=== PATIENT | male | born 1995 | race Caucasian/White ===

== ENCOUNTER 2020-03-24 22:00 | Emergency (ER) | payer SELFPAY ==
--- OUTSIDE RECORDS SUMMARY | 2020-03-24 22:03 | XMS REPORT | Continuity of Care Document ---
:1995 Author Organization [facility] t Address [address] [place] [address] [address] [place] [address] Care Team Providers Name Role Phone Unavailable Unavailable Unavailable Problems This patient has no known problems. Allergies, Adverse Reactions, Alerts This patient has no known allergies or adverse reactions. Medications This patient has no known medications. Procedures This patient has no known procedures. Results This patient has no known results.
[2020-03-24] MEDS ORDERED: dexAMETHasone 10 MG/ML VIAL ONE (22:42)
[2020-03-24] MEDS ORDERED: HYDROCODONE/CHLORPHEN 5 ML/OSYR ONE (22:42)
[2020-03-24] MEDS ORDERED: KETOROLAC 30 MG/ML INJ ONE (22:43)
--- NOTE | 2020-03-25 00:52 | ER ---
Nurse's Notes [facility] Name: Casa Puga Age: 24 yrs Sex: Male : 1995 Arrival Date: 03/24/2020 Time: 22:03 Bed 20 Private MD: Diagnosis: Acute sinusitis;Cough Presentation: 03/24 22:09 Chief complaint: Patient states: Productive cough x 2 weeks. Sore throat and ca1 congestion, headache, sinus pressure x 1 week. Denies fever. Coronavirus screen: Client denies travel out of the [place] in the last 14 days. congestion, cough unrelated to allergies, headache, sore throat, Client presents with at least one sign or symptom that may indicate coronavirus-19. Standard/surgical mask placed on the client. Provider contacted for isolation considerations. Ebola Screen: Patient negative for fever greater than or equal to 101.5 degrees Fahrenheit, and additional compatible Ebola Virus Disease symptoms Patient denies exposure to infectious person. Patient denies travel to an Ebola-affected area in the 21 days before illness onset. No symptoms or risks identified at this time. Initial Sepsis Screen: Does the patient meet any 2 criteria? No. Patient's initial sepsis screen is negative. Does the patient have a suspected source of infection? No. Patient's initial sepsis screen is negative. Risk Assessment: Do you want to hurt yourself or someone else? Patient reports no desire to harm self or others. 22:09 Method Of Arrival: Ambulatory ca1 22:09 Acuity: NARGIS 3 ca1 22:09 Onset of symptoms was March 24, 2020. ca1 Historical: - Allergies: 22:12 No Known Allergies; ca1 - Home Meds: 22:12 None [Active]; ca1 - PMHx: 22:12 Seizures; ca1 - PSHx: 22:12 None; ca1 - Immunization history:: Adult Immunizations up to date, Flu vaccine is not up to date. - Social history:: Smoking status: Patient reports the use of cigarette tobacco products, smokes two packs cigarettes per day. Screenin:52 Abuse screen: Denies threats or abuse. Nutritional screening: No deficits noted. ll2 Tuberculosis screening: No symptoms or risk factors identified. Fall Risk None identified. Assessment: 22:30 General: Appears in no apparent distress. Behavior is calm, cooperative, appropriate ll2 for age. Pain: Denies pain. Pain: Complains of pain in throat. Neuro: Level of Consciousness is. Neuro: Oriented to person, place, time, situation. Cardiovascular: Patient's skin is warm and dry. Respiratory: Airway is patent Respiratory effort is even, unlabored, Respiratory pattern is regular, symmetrical. Respiratory: Breath sounds are clear. GI: No signs and/or symptoms were reported involving the gastrointestinal system. : No signs and/or symptoms were reported regarding the genitourinary system. EENT: Throat is reddened. Derm: Skin is intact, is healthy with good turgor, Skin is dry, Skin is pink, warm \T\ dry. Musculoskeletal: Circulation, motion, and sensation intact. Range of motion: intact in all extremities. 23:30 Reassessment: Patient and/or family updated on plan of care and expected duration. Pain ll2 level reassessed. Patient is alert, oriented x 3, equal unlabored respirations, skin warm/dry/pink. Vital Signs: 22:09 BP 143 / 89; Pulse 101; Resp 17 S; Temp 97.9(TE); Pulse Ox 98% on R/A; Weight 90.72 kg ca1 (R); Height 5 ft. 8 in. (172.72 cm) (R); Pain 2/10; 22:52 BP 140 / 87; Pulse 91; Resp 18; Temp 98; Pulse Ox 97% on R/A; ll2 12 00:00 BP 132 / 75; Pulse 72; Resp 18; Temp 98; Pulse Ox 95% on R/A; ll2 01:03 BP 127 / 89; Pulse 75; Resp 16; Temp 98.3; Pulse Ox 96% on R/A; ll2 03/24 22:09 Body Mass Index 30.41 (90.72 kg, 172.72 cm) ca1 ED Course: 03/24 22:03 Patient arrived in ED. bp1 22:05 Jason Kidd NP is PHCP. pm1 22:05 Allen Ordonez MD is Attending Physician. pm1 22:11 Triage completed. ca1 22:12 Arm band placed on right wrist. ca1 22:14 Yessy Leonard RN is Primary Nurse. ll2 22:15 Patient has correct armband on for positive identification. Placed in gown. Bed in low ll2 position. Call light in reach. Side rails up X 1. Pulse ox on. NIBP on. 22:36 CXR XRAY In Process Unspecified. EDMS 03/25 01:04 No provider procedures requiring assistance completed. Patient did not have IV access ll2 during this emergency room visit. Administered Medications: 03/24 22:48 Drug: Decadron 10 mg Route: IM; Site: right deltoid; ll2 23:34 Follow up: Response: No adverse reaction ll2 22:48 Drug: TORadol 60 mg Route: IM; Site: right gluteus; ll2 23:34 Follow up: Response: No adverse reaction ll2 22:48 Drug: Tussionex Pennkinetic ER 5 ml Route: PO; ll2 23:35 Follow up: Response: No adverse reaction ll2 Outcome: 03/25 00:51 Discharge ordered by MD. pm1 01:04 Discharged to home ambulatory. ll2 01:04 Condition: stable 01:04 Discharge instructions given to patient, Instructed on discharge instructions, follow up and referral plans. medication usage, Demonstrated understanding of instructions, follow-up care, medications, Prescriptions given X 3. 01:05 Patient left the ED. ll2 Addendum: 03/27/2020 16:31 Addendum: COVID-19 Result: Negative result given to RN to notify pt. Notified pt of a a5 negative COVID 19 swab results. Pt advised that even with a negative test result they should remain in isolation until symptom free for 3 days without medication. Pt also advised to return to the ED for worsening symptoms. Signatures: Dispatcher [employer] EDNE Liliya Wright RN RN aa5 Jason Kidd, BID ANALYST BID ANALYST pm1 Ashleigh Magallon RN RN ca1 Yessy Leonard RN RN ll2 Citlalli Barajas bp1
--- NOTE | 2020-03-25 00:52 | EDPHYS ---
Physician Documentation [facility] Name: Casa Puga Age: 24 yrs Sex: Male : 1995 Arrival Date: 03/24/2020 Time: 22:03 Bed 20 Private MD: ED Physician Allen Ordonez HPI: 03/24 22:21 This 24 yrs old Male presents to ER via Ambulatory with complaints of Cough, pm1 Sore Throat. 22:21 The patient or guardian reports cough, with productive sputum. Onset: The pm1 symptoms/episode began/occurred 2 week(s) ago. Severity of symptoms: in the emergency department the symptoms are unchanged. Modifying factors: The symptoms are alleviated by nothing, the symptoms are aggravated by nothing. Associated signs and symptoms: Pertinent positives: sore throat, Pertinent negatives: chest pain, fever, nausea, vomiting. The patient has not recently seen a physician. Patient with onset of sinus congestion and pain 2 weeks ago. 1 week ago with sore throat, post nasal drainage and coughing. Reports some shortness of breath. Patient's significant other with similar symptoms onset 1 week ago diagnosed as pharyngitis that improved with antibiotics. Historical: - Allergies: 22:12 No Known Allergies; ca1 - Home Meds: 22:12 None [Active]; ca1 - PMHx: 22:12 Seizures; ca1 - PSHx: 22:12 None; ca1 - Immunization history:: Adult Immunizations up to date, Flu vaccine is not up to date. - Social history:: Smoking status: Patient reports the use of cigarette tobacco products, smokes two packs cigarettes per day. ROS: 22:21 Constitutional: Negative for fever, chills, and weight loss. pm1 22:21 Neck: Negative for injury, pain, and swelling, Cardiovascular: Negative for chest pain, palpitations, and edema. 22:21 Abdomen/GI: Negative for abdominal pain, nausea, vomiting, diarrhea, and constipation, Back: Negative for injury and pain, MS/Extremity: Negative for injury and deformity, Skin: Negative for injury, rash, and discoloration, Neuro: Negative for headache, weakness, numbness, tingling, and seizure. 22:21 ENT: Positive for sinus congestion, sinus pain, sore throat, Negative for drainage from ear(s), ear pain. 22:21 Respiratory: Positive for cough, shortness of breath, Negative for wheezing. Exam: 22:21 Constitutional: This is a well developed, well nourished patient who is awake, alert, pm1 and in no acute distress. Head/Face: Normocephalic, atraumatic. 22:21 Skin: Warm, dry with normal turgor. Normal color with no rashes, no lesions, and no evidence of cellulitis. MS/ Extremity: Pulses equal, no cyanosis. Neurovascular intact. Full, normal range of motion. 22:21 ENT: External ear(s): are unremarkable, Ear canal(s): are normal, TM's: are normal, Posterior pharynx: Tonsils: bilaterally enlarged, with erythema, no exudate, no ulcerations, erythema, that is moderate, peritonsillar mass, is not appreciated, pooling of secretions, is not appreciated. 22:21 Cardiovascular: Exam negative for acute changes, Rate: normal, Rhythm: regular, Pulses: no pulse deficits are appreciated. 22:21 Respiratory: Exam negative for acute changes, respiratory distress, shortness of breath, Breath sounds: are clear throughout. Vital Signs: 22:09 BP 143 / 89; Pulse 101; Resp 17 S; Temp 97.9(TE); Pulse Ox 98% on R/A; Weight 90.72 kg ca1 (R); Height 5 ft. 8 in. (172.72 cm) (R); Pain 2/10; 22:52 BP 140 / 87; Pulse 91; Resp 18; Temp 98; Pulse Ox 97% on R/A; ll2 03/25 00:00 BP 132 / 75; Pulse 72; Resp 18; Temp 98; Pulse Ox 95% on R/A; ll2 01:03 BP 127 / 89; Pulse 75; Resp 16; Temp 98.3; Pulse Ox 96% on R/A; ll2 03/24 22:09 Body Mass Index 30.41 (90.72 kg, 172.72 cm) ca1 MDM: 03/24 22:15 Patient medically screened. pm1 03/25 00:50 Data reviewed: vital signs. Data interpreted: Pulse oximetry: on room air is 95 %. pm1 Interpretation: normal. Counseling: I had a detailed discussion with the patient and/or guardian regarding: the historical points, exam findings, and any diagnostic results supporting the discharge/admit diagnosis, lab results, radiology results, the need for outpatient follow up, to return to the emergency department if symptoms worsen or persist or if there are any questions or concerns that arise at home. 00:50 ED course: Patient with sinus congestion and pain for 14 days. Will treat with pm1 antibiotics - impression bacterial sinusitis . 03/24 22:21 Order name: Flu; Complete Time: 23:30 pm1 03/24 22:21 Order name: CXR XRAY pm1 03/24 22:21 Order name: Strep; Complete Time: 23:36 pm1 03/24 22:21 Order name: CORONAVIRUS EDMS 03/24 23:30 Order name: Throat Culture EDMS 03/24 22:21 Order name: Droplet/Contact Precautions; Complete Time: 22:25 pm1 03/24 22:21 Order name: Labs collected and sent; Complete Time: 22:25 pm1 Administered Medications: 03/24 22:48 Drug: Decadron 10 mg Route: IM; Site: right deltoid; ll2 23:34 Follow up: Response: No adverse reaction ll2 22:48 Drug: TORadol 60 mg Route: IM; Site: right gluteus; ll2 23:34 Follow up: Response: No adverse reaction ll2 22:48 Drug: Tussionex Pennkinetic ER 5 ml Route: PO; ll2 23:35 Follow up: Response: No adverse reaction ll2 Disposition: 03/25 02:52 Co-signature as Attending Physician, Allen Ordonez MD. mh7 Disposition: 03/25/20 00:51 Discharged to Home. Impression: Acute sinusitis, Cough. - Condition is Stable. - Discharge Instructions: Sinusitis, Adult, Cough, Adult. - Prescriptions for Augmentin 875- 125 mg Oral Tablet - take 1 tablet by ORAL route every 12 hours for 10 days; 20 tablet. Medrol (Milind) 4 mg Oral Tablets, Dose Pack - take 1 tablet by ORAL route as directed - follow package instructions; 1 packet. Guaifenesin AC 10- 100 mg/5 mL Oral Liquid - take 10 milliliter by ORAL route every 4 hours As needed; 240 milliliter. - Medication Reconciliation Form, Thank You Letter, Antibiotic Education, Prescription Opioid Use, Work release form form. - Follow up: Emergency Department; When: As needed; Reason: Worsening of condition. Follow up: Private Physician; When: 2 - 3 days; Reason: Recheck today's complaints, Continuance of care, Re-evaluation by your physician. - Problem is new. - Symptoms have improved. Signatures: Dispatcher [employer] [facility] Jason Kidd, GLASS RIBBON MACHINE OPERATOR ASSISTANT GLASS RIBBON MACHINE OPERATOR ASSISTANT pm1 Ashleigh Magallon RN RN ca1 Yessy Leonard RN RN ll2 Allen Ordonez MD MD mh7 Corrections: (The following items were deleted from the chart) 03/24 22:25 22:22 CORONAVIRUS+LAB.BRZ ordered. [facility] 03/25 00:52 00:51 03/25/2020 00:51 Discharged to Home. Impression: Acute sinusitis. Condition is pm1 Stable. Forms are Medication Reconciliation Form, Thank You Letter, Antibiotic Education, Prescription Opioid Use. Follow up: Emergency Department; When: As needed; Reason: Worsening of condition. Follow up: Private Physician; When: 2 - 3 days; Reason: Recheck today's complaints, Continuance of care, Re-evaluation by your physician. Problem is new. Symptoms have improved. pm1 01:05 00:52 03/25/2020 00:51 Discharged to Home. Impression: Acute sinusitis; Cough. ll2 Condition is Stable. Discharge Instructions: Sinusitis, Adult, Cough, Adult. Prescriptions for Augmentin 875-125 mg Oral Tablet - take 1 tablet by ORAL route every 12 hours for 10 days; 20 tablet, Medrol (Milind) 4 mg Oral Tablets, Dose Pack - take 1 tablet by ORAL route as directed - follow package instructions; 1 packet, Guaifenesin AC 10-100 mg/5 mL Oral Liquid - take 10 milliliter by ORAL route every 4 hours As needed; 240 milliliter. and Forms are Medication Reconciliation Form, Thank You Letter, Antibiotic Education, Prescription Opioid Use. Follow up: Emergency Department; When: As needed; Reason: Worsening of condition. Follow up: Private Physician; When: 2 - 3 days; Reason: Recheck today's complaints, Continuance of care, Re-evaluation by your physician. Problem is new. Symptoms have improved. pm1
--- NOTE | 2020-03-25 07:49 | RAD REPORT ---
EXAM DESCRIPTION: [place] Single View03/24/2020 10:36 pm CLINICAL HISTORY: Cough COMPARISON: none FINDINGS: The lungs appear clear of acute infiltrate. The heart is normal size IMPRESSION: No acute abnormalities displayed
[2020-03-28 06:11] VITALS: BP 127/89; TEMP 98.3; O2SAT 96
== END 2020-03-25 01:05 | disposition home or self-care (01) ==
LOC: ER 22:00
DX: J01.90 Acute sinusitis, unspecified (principal); Z20.828 Contact with and (suspected) exposure to other viral communicable diseases; F17.210 Nicotine dependence, cigarettes, uncomplicated
CPT/HCPCS: 71045; 87070; 87081; 87804; 96372; 99284; J1100; U0002

== ENCOUNTER 2022-03-31 22:16 | Emergency (ER) | payer OTHER, SELFPAY ==
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
[2022-03-31] MEDS ORDERED: PROMETH/COD 6.25/10MG SYRUP 5ML ONE (23:35)
[2022-03-31 23:39] LABS: SARS-COV-2 RT PCR NEGATIVE (NEGATIVE)
[2022-03-31] MEDS ORDERED: BENZONATATE 100 MG CAP PO ONE (23:45)
--- NOTE | 2022-03-31 23:50 | ER ---
Nurse's Notes [facility] Name: Casa Puga Age: 26 yrs Sex: Male : 1995 Arrival Date: 03/31/2022 Time: 22:22 Bed 12 Private MD: Diagnosis: Acute bronchitis, unspecified Presentation: 03/31 22:25 Chief complaint: Patient states: COUGH,SOB STARTED YESTERDAY. STATES HE HAD WALKING jj7 PNEUMONIA 2 YRS AGO AND STATES THIS FEELS THE SAME WAY. Coronavirus screen: cough unrelated to allergies, difficulty breathing. Ebola Screen: No symptoms or risks identified at this time. Initial Sepsis Screen: Does the patient meet any 2 criteria? HR > 90 bpm. No. Patient's initial sepsis screen is negative. Does the patient have a suspected source of infection? No. Patient's initial sepsis screen is negative. Risk Assessment: Do you want to hurt yourself or someone else? Patient reports no desire to harm self or others. Onset of symptoms was March 31, 2022. 22:25 Method Of Arrival: Ambulatory [facility] 22:25 Acuity: NARGIS 4 jj7 22:25 Acuity: NARGIS 3 jj7 Triage Assessment: 22:28 General: Appears in no apparent distress. comfortable, Behavior is calm, cooperative, jj7 appropriate for age. Respiratory: Reports cough that is non-productive, pain with cough pain with respiration. 04/01 00:00 Respiratory: Onset: The symptoms/episode began/occurred suddenly, the patient has mild tw5 shortness of breath. Historical: - Allergies: 03/31 22:28 No Known Allergies; jj7 - PMHx: 22:28 Seizures; jj7 - PSHx: 22:28 None; jj7 - Immunization history:: Client reports having NOT received the Covid vaccine. - Social history:: Smoking status: Patient reports the use of cigarette tobacco products, smokes three packs cigarettes per day. Patient uses alcohol, on a daily basis. Patient/guardian denies using street drugs. Screenin:59 [facility] ED Fall Risk Assessment (Adult) History of falling in the last 3 months, tw5 including since admission No falls in past 3 months (0 pts). Humpty Dumpty Scale Fall Assessment Tool (age< 18yrs) Age 13 years and above (1 pt). Abuse screen: Denies threats or abuse. Denies injuries from another. Nutritional screening: No deficits noted. Tuberculosis screening: No symptoms or risk factors identified. Fall Risk No fall in past 12 months (0 pts). Assessment: 22:58 General: Reports "I had a cough for the past few days. I just feel like it is getting tw5 worse. I usually cough anyway's because of my tonsil stones.". Respiratory: Reports cough that is non-productive, dry, persistent Airway is patent Trachea midline Respiratory effort is even, Respiratory pattern is regular. 23:00 Respiratory: tw5 23:59 Cardiovascular: Rhythm is. tw5 Vital Signs: 22:25 BP 140 / 97; Pulse 117; Resp 20; Temp 98.8; Pulse Ox 99% ; Weight 105.69 kg; Height 5 jj7 ft. 9 in. (175.26 cm); Pain 5/10; 22:25 Body Mass Index 34.41 (105.69 kg, 175.26 cm) jj7 ED Course: 22:22 Patient arrived in ED. ja2 22:23 Marisa Everett MD is Attending Physician. sd2 22:28 Triage completed. jj7 22:28 Arm band placed on right wrist. jj7 22:37 Brissa Taveras is Primary Nurse. tw5 22:54 XRAY Chest (1 view) In Process Unspecified. EDMS 22:59 No provider procedures requiring assistance completed. Inserted Patient did not have IV tw5 access during this emergency room visit. 23:00 Patient has correct armband on for positive identification. tw5 23:03 COVID-19/FLU A+B Sent. tw5 Administered Medications: 23:30 CANCELLED (Physician Discretion): Tessalon Perle (benzonatate) 200 mg PO once sd2 23:42 Not Given (Other Intervention Used; patient doesn't have ride homee): Phenergan tw5 (promethazine) -Codeine Liquid (6.25mg - 10mg / 5mL) 10 ml PO once 23:45 Drug: Tessalon Perle (benzonatate) 200 mg Route: PO; tw5 23:46 Follow up: Response: No adverse reaction tw5 Medication: 23:00 VIS not applicable for this client. tw5 Outcome: 23:50 Discharge ordered by . sd2 23:59 Discharged to home ambulatory. tw5 23:59 Condition: good 23:59 Discharge instructions given to patient, Instructed on discharge instructions, follow up and referral plans. Demonstrated understanding of instructions, follow-up care, medications, Prescriptions given X 4. 04/01 00:00 Patient left the ED. tw5 Signatures: Dispatcher [employer] EDMS Carla Sprague ja2 Brissa Taveras tw5 Marisa Everett MD MD sd2 Chelly Garza RN RN jj7
--- NOTE | 2022-03-31 23:51 | EDPHYS ---
Physician Documentation [facility] Name: Casa Puga Age: 26 yrs Sex: Male : 1995 Arrival Date: 03/31/2022 Time: 22:22 Bed 12 Private MD: ED Physician Marisa Everett HPI: 03/31 22:56 This 26 yrs old Male presents to ER via Ambulatory with complaints of Cough, Breathing sd2 Difficulty, Fever. 22:56 26 yo M presents with 2 day history of cough, difficulty breathing, difficulty sleeping sd2 and "burning pain" in his lung on the right side. Denies any fever, vomiting, diarrhea or known sick contacts. Reports feels like when he had walking pneumonia previously. Pt is a smoker. . Historical: - Allergies: 22:28 No Known Allergies; jj7 - PMHx: 22:28 Seizures; jj7 - PSHx: 22:28 None; jj7 - Immunization history:: Client reports having NOT received the Covid vaccine. - Social history:: Smoking status: Patient reports the use of cigarette tobacco products, smokes three packs cigarettes per day. Patient uses alcohol, on a daily basis. Patient/guardian denies using street drugs. ROS: 22:56 Constitutional: Negative for fever, chills, and weight loss, Eyes: Negative for injury, sd2 pain, redness, and discharge, ENT: Negative for injury, pain, and discharge, Cardiovascular: Negative for chest pain, palpitations, and edema, Respiratory: Positive for shortness of breath, cough, Negative for wheezing. Abdomen/GI: Negative for abdominal pain, nausea, vomiting, diarrhea. MS/Extremity: Negative for injury and deformity, Skin: Negative for injury, rash, and discoloration, Neuro: Negative for headache, numbness and tingling. Exam: 22:56 Constitutional: This is a well developed, well nourished patient who is awake, alert, sd2 and in no acute distress. Head/Face: Normocephalic, atraumatic. Eyes: EOMI, normal conjunctiva bilaterally Chest/axilla: Normal chest wall appearance and motion. Nontender with no deformity. Cardiovascular: Regular rate and rhythm with a normal S1 and S2. No gallops, murmurs, or rubs. 2+ distal pulses. Respiratory: Lungs have equal breath sounds bilaterally, clear to auscultation and percussion. No rales, rhonchi or wheezes noted. No increased work of breathing, no retractions or nasal flaring. Occasional bronchospastic cough noted. Abdomen/GI: Soft, non-tender, with normal bowel sounds. No guarding or rebound. No evidence of tenderness throughout. Skin: Warm, dry with normal turgor. Normal color with no rashes, no lesions, and no evidence of cellulitis. MS/ Extremity: Pulses equal, no cyanosis. Neurovascular intact. Full, normal range of motion. Ambulatory without difficulty. Psych: Awake, alert, with orientation to person, place and time. Behavior, mood, and affect are within normal limits. Vital Signs: 22:25 BP 140 / 97; Pulse 117; Resp 20; Temp 98.8; Pulse Ox 99% ; Weight 105.69 kg; Height 5 jj7 ft. 9 in. (175.26 cm); Pain 5/10; 22:25 Body Mass Index 34.41 (105.69 kg, 175.26 cm) jj7 MDM: 22:33 Patient medically screened. sd2 22:56 Differential Diagnosis: Other Differential diagnosis includes but is not limited to: sd2 Viral URI, acute otitis media, acute otitis externa, pneumonia, UTI, COVID, flu, herpangina among others. Data reviewed: vital signs, nurses notes. 23:48 Data reviewed: lab test result(s), radiologic studies. Counseling: I had a detailed sd2 discussion with the patient and/or guardian regarding: the historical points, exam findings, and any diagnostic results supporting the discharge/admit diagnosis, lab results, radiology results, the need for outpatient follow up, to return to the emergency department if symptoms worsen or persist or if there are any questions or concerns that arise at home. Medical screen evaluation completed. EMTALA emergency medical condition absent. ED course: Labs and imaging reviewed. Viral testing negative. CXR with no acute process. Suspect bronchitis. will treat with steroids, inhaler and Z-pack. Pt comfortable with plan for discharge and outpatient follow up. Verbalizes understanding of strict return precautions. . 03/31 22:28 Order name: COVID-19/FLU A+B; Complete Time: 23:47 sd2 03/31 22:32 Order name: XRAY Chest (1 view) sd2 Administered Medications: 23:30 CANCELLED (Physician Discretion): Tessalon Perle (benzonatate) 200 mg PO once sd2 23:42 Not Given (Other Intervention Used; patient doesn't have ride homee): Phenergan tw5 (promethazine) -Codeine Liquid (6.25mg - 10mg / 5mL) 10 ml PO once 23:45 Drug: Tessalon Perle (benzonatate) 200 mg Route: PO; tw5 23:46 Follow up: Response: No adverse reaction tw5 Disposition Summary: 03/31/22 23:50 Discharge Ordered Location: Home sd2 Problem: new sd2 Symptoms: have improved sd2 Condition: Stable sd2 Diagnosis - Acute bronchitis, unspecified sd2 Followup: sd2 - With: Private Physician - When: 2 - 3 days - Reason: Recheck today's complaints, Continuance of care, Re-evaluation by your physician Discharge Instructions: - Discharge Summary Sheet sd2 - Acute Bronchitis, Adult sd2 - Viral Respiratory Infection sd2 Forms: - Medication Reconciliation Form sd2 - Thank You Letter sd2 - Antibiotic Education sd2 - Prescription Opioid Use sd2 Prescriptions: - albuterol sulfate 90 mcg/actuation Inhalation HFA aerosol inhaler - inhale 2 puff by INHALATION route every 4-6 hours As needed; 1 Inhaler; sd2 Refills: 0, Product Selection Permitted - azithromycin 250 mg Oral tablet - take 2 tablet by ORAL route once daily for 1 day then 1 tablet (250 mg) by oral sd2 route once daily for 4 days; 6 tablet; Refills: 0, Product Selection Permitted - Prednisone 20 mg Oral Tablet - take 2 tablets by ORAL route once daily for 5 days; 10 tablet; Refills: 0, sd2 Product Selection Permitted - Guaifenesin AC 10-100 mg/5 mL Oral Liquid - take 10 milliliters by ORAL route every 4 hours As needed; 240 milliliter; sd2 Refills: 0, Product Selection Permitted Signatures: Dispatcher [employer] Brissa Garrido tw5 Marisa Everett MD MD sd2 Chelly Garza RN RN jj7 Corrections: (The following items were deleted from the chart) 23:30 23:29 Tessalon Perle (benzonatate) 200 mg PO once ordered. sd2 sd2
[2022-04-01 00:51] VITALS: BP 140/97; TEMP 98.8; O2SAT 99
--- NOTE | 2022-04-01 10:51 | RAD REPORT ---
EXAM DESCRIP Single view AP chest radiograph(s). CLINICAL HISTORY: PRODUCTIVE COUGH. COMPARISON: None. TECHNIQUE: Single view AP chest radiograph(s). FINDINGS: Slightly low lung volumes. No pulmonary infiltrate identified. No pleural effusion. No pne umothorax. Nonenlarged cardiomediastinal silhouette. No significant osseous abnormality. IMPRESSION: No acute cardiopulmonary abnormality identified by radiograph. 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 The interpreting radiologist is fully responsible for the content of the report.
== END 2022-04-01 | disposition home or self-care (01) ==
LOC: ER 22:16
DX: J40 Bronchitis, not specified as acute or chronic (principal); F17.210 Nicotine dependence, cigarettes, uncomplicated; Z20.822 Contact with and (suspected) exposure to COVID-19
CPT/HCPCS: 0240U; 71045; 99284

== ENCOUNTER 2022-05-21 17:42 | Emergency (ER) | payer OTHER ==
--- OUTSIDE RECORDS SUMMARY | 2022-05-21 17:45 | XMS REPORT | Continuity of Care Document ---
:1995 Author Organization [facility] t Address [address] [place] [address] Care Team Providers Name Role Phone PCP, PATIENT DOES NOT HAVE A Primary Care Physician Unavaila TELLO Mena Attending Clinician Unavailable Payers Payer Name Policy Type Policy Number Effective Date Expiration Date Carissa mota [place] [id number] 2022 00:00:00 HLTH-NAVIGATE/POS Problems Condition Condition Condition [...] Externa l Pharyngiti Pharyngiti Disease Active 2021-04 K ambrose s s 04-22 Seybold 00:00: - 00 Externa l Allergies, Adverse Reactions, Alerts Allergy Allergy Status Severity Reaction(s) Onset Inactive Treating Comm ents Source Name Type Date Date Clinician NO KNOWN Drug Active [facility] ALLERGIE Class ity of S [facility] Social History Social Habit Start Date Stop Date Quantity Comments Source History SDOH Conner melvin Alcohol Frequency - Exter nal History SDOH Conner melvin Alcohol Std Drinks - Exte rnal History SDOH Conner melvin Alcohol Binge - External History of tobacco Cigarette Smoker Conner Bravoalliecruz use - External Alcohol intake 2022-02-20 2022-02-20 Current drinker of Lee Chong 00:00:00 00:00:00 alcohol (finding) - Exter nal Alcohol Comment 2022-02-20 2022-02-20 occasionally Conner olga 00:00:00 00:00:00 - External Education 2022-02-20 2022-02-20 14 Conner Castillo 00:00:00 00:00:00 - External Cigarettes smoked 2022-02-20 [...] Source Smokes tobacco daily 2022-02-20 00:00:00 Conner Chnog - External Medications Ordered Filled Start Stop Current Ordering Indication Dosage Frequency Signature Comments Components Source Medication Medication Date Date Medication? Clinician (SIG) Name Name Amoxicillin 2021-04 Yes [id number] 1{tbl} Take 1 Conner -Pot 1-11 tablet [...] Body weight 2022-02-20 15:27:00 111.131 kg Conner cliftonbold - External BMI 2022-02-20 15:27:00 36.18 kg/m2 Conner cliftonbold - External Oxygen saturation in 2022-02-20 15:27:00 99 /min oCnner Bravoalliecruz - Arterial blood by External Pulse oximetry Procedures This patient has no known procedures. Encounters Start End Encounter Admission Attending Care Care Encounter Source Date/Time Date/Time Type Type Clinicians Facility Department ID 2022-04-01 2022-04-01 Outpatient CONNER ORTIZ [id number] Conner 00:00:00 00:00:00 TELLO Seybol d 2022-03-27 2022-03-27 Outpatient CONNER ORTIZ [id number] Conner 00:00:00 00:00:00 TELLO Seybol d 2022-03-20 2022-03-20 Outpatient CONNER ORTIZ [id number] Conner 08:15:00 08:15:00 TELLO Seybol d 2022-02-26 2022-02-26 Outpatient CONNER ORTIZ [id number] Conner 00:00:00 00:00:00 TELLO Seybol d 2022-02-20 2022-02-20 Outpatient CONNER ORTIZ [id number] Conner 09:30:00 09:30:00 TELLO Seybol d 2022-02-06 2022-02-06 Outpatient CONNER ORTIZ [id number] Conner 09:15:00 09:15:00 TELLO Seybol d 2021-07-15 2021-07-15 Emergency X [facility] ERT [id number] Univers 17:12:00 17:56:00 [facility] Results This patient has no known results.
[2022-05-21] MEDS ORDERED: HYDROCODONE/APAP 7.5/325 MG TAB ONE (18:13)
[2022-05-21] MEDS ORDERED: IBUPROFEN 400 MG TAB ONE (18:14)
[2022-05-21] MEDS ORDERED: TDAP (DIPHTH,PERTUSS(ACELL),TET VAC) 0.5 ML VIAL IMVAC ONE (18:14)
--- NOTE | 2022-05-21 18:31 | RAD REPORT ---
EXAM DESCRIPTION: RAD - Hand Right 3 View - 05/21/2022 6:23 pm CLINICAL HISTORY: PAIN COMPARISON: No comparisons FINDINGS: Mild soft tissue swelling affects the third and fourth finger. No fracture or radiopaque f oreign body.
[2022-05-21] MEDS ORDERED: BUPIVACAINE 0.5% PF 10 ML VIAL ONE (18:43)
[2022-05-21] MEDS ORDERED: LIDOCAINE 1% 20 ML MDV ONE (18:43)
--- NOTE | 2022-05-21 19:49 | ER ---
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 Coronavirus screen: Vaccine status: Patient reports being unvaccinated. Ebola Screen: No symptoms or risks identified at this time. Risk Assessment: Do you want to hurt yourself or someone else? Patient reports no desire to harm self or others. Onset of symptoms was May 21, 2022. 17:47 Method Of Arrival: Ambulatory mb9 17:47 Acuity: NARGIS 4 mb9 20:32 Complicating Factors: There are no complicating factors for this patient. Initial kr3 Sepsis Screen: Does the patient meet any 2 criteria? No. Patient's initial sepsis screen is negative. Does the patient have a suspected source of infection? No. Patient's initial sepsis screen is negative. Triage Assessment: 17:45 General: Appears in no apparent distress. uncomfortable, Behavior is calm, cooperative, kr3 appropriate for age. Pain: Complains of pain in palmar aspect of distal phalanx of right ring finger. Historical: - Allergies: 17:50 No Known Allergies; mb9 - Home Meds: 17:50 None [Active]; mb9 - PMHx: 17:50 Seizures; mb9 - PSHx: 17:50 None; mb9 - Immunization history:: Adult Immunizations not up to date. - Social history:: Smoking status: Patient reports the use of cigarette tobacco products, smokes three packs cigarettes per day. Patient uses alcohol, on a daily basis. admits to "couple of beers" a day. Screenin:00 Tuberculosis screening: No symptoms or risk factors identified. kr3 20:00 Abuse screen: Denies threats or abuse. Nutritional screening: No deficits noted. kr3 20:00 [facility] ED Fall Risk Assessment (Adult) History of falling in the last 3 months, kr3 including since admission No falls in past 3 months (0 pts) Confusion or Disorientation No (0 pts) Intoxicated or Sedated No (0 pts) Impaired Gait No (0 pts) Mobility Assist Device Used No (0 pt) Altered Elimination No (0 pt) Score/Fall Risk Level 0 - 2 = Low Risk Oriented to surroundings, Maintained a safe environment, Assessed \\T\\ reinforced patient's understanding of fall precautions, Hourly rounding (assess needs \\T\\ fall precautionary measures) done. Assessment: 20:00 Injury Description: Laceration is clean. kr3 20:00 Musculoskeletal: Circulation, motion, and sensation intact. kr3 Vital Signs: 17:47 Pulse 85; Resp 22; Temp 98.2; Pulse Ox 100% ; Weight 108.86 kg; Height 5 ft. 9 in. mb9 (175.26 cm); Pain 10/10; 17:51 BP 130 / 97; mb9 17:47 Body Mass Index 35.44 (108.86 kg, 175.26 cm) mb9 ED Course: 17:42 Patient arrived in ED. as 17:50 Triage completed. mb9 17:51 Arm band placed on. mb9 17:56 Viraj Kay PA is PHCP. cp 17:56 Gilberto Bonner MD is Attending Physician. cp 18:00 Marilee Hoyos RN is Primary Nurse. kr3 18:00 Bed in low position. Call light in reach. Side rails up X 1. kr3 18:25 XRAY Hand RIGHT 3 View In Process Unspecified. EDMS 20:00 Patient did not have IV access during this emergency room visit. kr3 20:31 No provider procedures requiring assistance completed. 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 Exp: kr3 10/24/2122. Lot #: [id number]. } Route: IM; Site: right deltoid; 20:11 Follow up: Response: No adverse reaction kr3 18:22 Drug: Ibuprofen 800 mg Route: PO; kr3 20:12 Follow up: Response: No adverse reaction kr3 18:22 Drug: Hydrocodone-Acetaminophen (7.5 mg-325 mg) 1 tabs Route: PO; kr3 20:12 Follow up: Response: No adverse reaction; RASS: Alert and Calm (0) kr3 19:15 Drug: Lidocaine (1 %) 10 ml {Note: administered by Felisa Kay at bedside for a procedure.} kr3 Volume: 20 ml; Route: Infiltration; 20:12 Follow up: Response: No adverse reaction kr3 19:15 Drug: Marcaine (bupivacaine) (0.5 %) 10 ml {Note: administered by Felisa Kay at bedside kr3 for procedure.} Volume: 10 ml; Route: Infiltration; 20:12 Follow up: Response: No adverse reaction kr3 Medication: 20:00 Vaccine Information Statement (VIS) provided today. Questions and/or concerns kr3 addressed. VIS edition date: November 15, 2020. Outcome: 19:48 Discharge ordered by . margarita 20:00 Discharged to home ambulatory. kr3 20:00 Condition: stable 20:00 Discharge instructions given to patient, family, Instructed on discharge instructions, follow up and referral plans. medication usage, Demonstrated understanding of instructions, follow-up care, medications, Prescriptions given X 2. 20:12 Patient left the ED. kr3 Signatures: Dispatcher [employer] EDMS Tita Goel Corey, PA PA cp Reid, Kelley, RN RN kr3 Cristine Shankar RN RN mb9 Corrections: (The following items were deleted from the chart) 20:33 20:31 Abuse screen: Denies threats or abuse. kr3 kr3 20:33 20:31 Nutritional screening: No deficits noted. kr3 kr3
--- NOTE | 2022-05-21 19:49 | EDPHYS ---
Physician Documentation [facility] Name: Casa Puga Age: 26 yrs Sex: Male : 1995 Arrival Date: 05/21/2022 Time: 17:42 Bed 12 Private MD: ED Physician Gilberto Bonner HPI: 05/21 18:15 This 26 yrs old Male presents to ER via Ambulatory with complaints of Laceration - cp fingers. 18:15 The patient or guardian reports injury, a laceration. The complaints affect the distal cp phalanx of right ring and fourth fingers. 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 Onset: The symptoms/episode began/occurred just prior to arrival. Associated signs and symptoms: Pertinent negatives: cyanosis distally, numbness distally. Historical: - Allergies: 17:50 No Known Allergies; mb9 - Home Meds: 17:50 None [Active]; mb9 - PMHx: 17:50 Seizures; mb9 - PSHx: 17:50 None; mb9 - Immunization history:: Adult Immunizations not up to date. - Social history:: Smoking status: Patient reports the use of cigarette tobacco products, smokes three packs cigarettes per day. Patient uses alcohol, on a daily basis. admits to "couple of beers" a day. ROS: 18:20 Skin: Positive for laceration(s), of the distal phalanx right ring and middle fingers. cp 18:20 Constitutional: Negative for body aches, chills, fever, poor PO intake. cp 18:20 Cardiovascular: Negative for chest pain, palpitations. cp 18:20 Respiratory: Negative for cough, shortness of breath, wheezing. 18:20 Abdomen/GI: Negative for abdominal pain, nausea, vomiting, and diarrhea. 18:20 Neuro: Negative for altered mental status, headache, weakness. 18:20 All other systems are negative. Exam: 18:20 Constitutional: The patient appears in no acute distress, alert, awake, non-toxic, well cp developed, well nourished. 18:20 Head/Face: Normocephalic, atraumatic. cp 18:20 Cardiovascular: Rate: normal, Rhythm: regular. 18:20 Respiratory: the patient does not display signs of respiratory distress, Respirations: normal, no use of accessory muscles, no retractions. 18:20 Abdomen/GI: Exam negative for discomfort, distension, guarding, Inspection: abdomen appears normal. 18:20 Musculoskeletal/extremity: Extremities: grossly normal except: noted in the distal phalanx of right ring and middle fingers: Examination of right ring finger shows an irregular laceration dorsal side that extends at the tip of the distal phalanx into the distal part of the nail causing a partial avulsion of the nail and the distal tip skin area. The nail was pulled back to show some mild bleeding but the nailbed is intact. There is also a laceration radial side of the right ring finger with mild bleeding approximately 2 cm in length. Examination of the right middle finger shows very superficial laceration injuries to the distal aspect of the nail. The nail is attached to the nailbed with no separation. Vital Signs: 17:47 Pulse 85; Resp 22; Temp 98.2; Pulse Ox 100% ; Weight 108.86 kg; Height 5 ft. 9 in. mb9 (175.26 cm); Pain 10/10; 17:51 BP 130 / 97; mb9 17:47 Body Mass Index 35.44 (108.86 kg, 175.26 cm) mb9 MDM: 17:57 Patient medically screened. cp 19:47 Data reviewed: vital signs, nurses notes, radiologic studies, plain films. cp 19:47 Differential diagnosis: open fracture, closed fracture, nail bed injury, amputation. cp Counseling: I had a detailed discussion with the patient and/or guardian regarding: the historical points, exam findings, and any diagnostic results supporting the discharge/admit diagnosis, radiology results, to return to the emergency department if symptoms worsen or persist or if there are any questions or concerns that arise at home. ED course: The partially avulsed nail and skin was removed manually using a pair of curved hemostats. The digit was partially blocked using approximately 6 cc of a 50-50 mixture of 1% lidocaine without epi and 0.5% Marcaine. The wound was cleaned and dressed and will discharge patient to home for continued monitoring. 05/21 18:07 Order name: XRAY Hand RIGHT 3 View; Complete Time: 18:45 cp 05/21 18:45 Interpretation: Report reviewed. cp 05/21 18:38 Order name: Dressing - Wound; Complete Time: 20:11 cp 05/21 18:38 Order name: Gloves, Sterile; Complete Time: 20:11 cp 05/21 18:38 Order name: Setup Suture Tray; Complete Time: 18:40 cp 05/21 19:45 Order name: Wound dressing: finger splint; Complete Time: 20:10 cp Administered Medications: 18:22 Drug: Tetanus-Diphtheria Toxoid Adult 0.5 ml {Informatics Pharmacist: [employer] ([employer]). Exp: kr3 10/24/2122. Lot #: [id number]. } Route: IM; Site: right deltoid; 20:11 Follow up: Response: No adverse reaction kr3 18:22 Drug: Ibuprofen 800 mg Route: PO; kr3 20:12 Follow up: Response: No adverse reaction kr3 18:22 Drug: Hydrocodone-Acetaminophen (7.5 mg-325 mg) 1 tabs Route: PO; kr3 20:12 Follow up: Response: No adverse reaction; RASS: Alert and Calm (0) kr3 19:15 Drug: Lidocaine (1 %) 10 ml {Note: administered by Felisa Kay at bedside for a procedure.} kr3 Volume: 20 ml; Route: Infiltration; 20:12 Follow up: Response: No adverse reaction kr3 19:15 Drug: Marcaine (bupivacaine) (0.5 %) 10 ml {Note: administered by Felisa Kay at bedside kr3 for procedure.} Volume: 10 ml; Route: Infiltration; 20:12 Follow up: Response: No adverse reaction kr3 Disposition: 05/22 17:49 Co-signature as Attending Physician, Gilberto Bonner MD I reviewed the patient's care rt provided by the Advanced Practice Provider and agree with the diagnosis and treatment plan. Disposition Summary: 05/21/22 19:48 Discharge Ordered Location: Home cp Problem: new cp Symptoms: have improved cp Condition: Stable cp Diagnosis - Laceration without foreign body of right ring finger with damage to nail, initial cp encounter - partial nail avulsion - Laceration without foreign body of right middle finger with damage to nail, initial cp encounter - superficial Followup: cp - With: Private Physician - When: 2 - 3 days - Reason: Worsening of condition Discharge Instructions: - Discharge Summary Sheet cp - Nonsutured Laceration Care cp - Nail Avulsion cp Forms: - Medication Reconciliation Form cp - Thank You Letter cp - Antibiotic Education cp - Prescription Opioid Use cp Prescriptions: - Cephalexin 500 mg Oral Capsule - take 1 capsule by ORAL route every 8 hours for 10 days; 30 capsule; Refills: 0, cp Product Selection Permitted - Ibuprofen 800 mg Oral Tablet - take 1 tablet by ORAL route every 8 hours As needed take with food; 30 tablet; cp Refills: 0, Product Selection Permitted Signatures: Dispatcher [employer] EDMS Viraj Kay PA PA cp Marilee Hoyos RN RN kr3 Cristine Shankar RN RN mb9 Gilberto Bonner MD MD rt Corrections: (The following items were deleted from the chart) 18:56 18:55 Skin: Positive for laceration(s), of the distal phalanx right ring and middle cp fingers, cp
[2022-05-21 20:17] VITALS: TEMP 98.2; O2SAT 100
[2022-05-21 20:18] VITALS: BP 130/97
== END 2022-05-21 20:12 | disposition home or self-care (01) ==
LOC: ER 17:42
DX: S61.314A Laceration without foreign body of right ring finger with damage to nail, initial encounter (principal); S61.312A Laceration without foreign body of right middle finger with damage to nail, initial encounter; Z23 Encounter for immunization; F17.210 Nicotine dependence, cigarettes, uncomplicated
CPT/HCPCS: 73130; 90471; 99283; J2001